=== PATIENT | female | born 1980 | race Caucasian/White ===

== ENCOUNTER → 2016-05-15 | Outpatient (CLI) | payer MEDICAID ==
[2016-05-15 16:25] VITALS: BP 122/72
== END ==
LOC: MHUC 15:44
PROVIDERS: ATTEND Physician Assistant
DX: J00 Acute nasopharyngitis [common cold] (principal)
CPT/HCPCS: 99213

== ENCOUNTER 2016-05-21 01:26 | Emergency (ER) | payer MEDICAID ==
[~2016-05-21] VITALS: Ht 162.6 cm; Wt 79.9 kg
[2016-05-21] MEDS ORDERED: ED- AZITHROMYCIN 250 MG (ZITHROMAX) 3 TABLETS/BTL PO ONE (02:25)
[2016-05-21 02:33] VITALS: BP 127/72
== END 2016-05-21 02:36 | disposition home or self-care (01) ==
LOC: ED 01:28
DX: J06.9 Acute upper respiratory infection, unspecified (principal)
CPT/HCPCS: 99282; A9270; 99283

== ENCOUNTER → 2016-07-20 | Outpatient (CLI) | payer MEDICAID ==
[~2016-07-20] MED LIST: ACET-789 PO; AZIT250T81 PO; DULO30CA PO; ONDA4TAB8 PO; PENI500T PO
== END ==
LOC: LAB 15:00
PROVIDERS: ATTEND Family Medicine
DX: D50.8 Other iron deficiency anemias (principal)
CPT/HCPCS: 36415; 83540